=== PATIENT | male | born 1985 | race African-American/Black ===

== ENCOUNTER 2017-06-01 04:39 | Emergency (ER) | payer SELFPAY ==
[2017-06-01 04:44] VITALS: PULSE 52
--- NOTE | 2017-06-01 05:11 | EDPHY ---
H & P Stated Complaint: TOOTHACHE X 1 DAY Time Seen by Provider: 06/01/17 05:04 HPI/ROS: HPI The patient presents with toothache of his left lower molar which has been present for the last 2 weeks though is worse over the last several hours. He had a filling in place in this tooth which fell out a few weeks ago. He has not been able to see a dentist. He has pain in the area which is worse at night. The pain is aching, does not radiate, is not associated with any fever and neck pain.. REVIEW OF SYSTEMS Constitutional: No fever, no chills. Skin: No rashes. Neurological: No headache. PMHx: Healthy Soc Hx: Recently moved to [place] PHYSICAL General Appearance: Alert, no distress Eyes: Pupils equal and round no pallor or injection ENT, Mouth: Left lower molar demonstrates caries, there is tenderness along the gum line with any obvious areas of fluctuance, erythema, there is no trismus Respiratory: Breathing comfortably Neurological: A&O, moves all extremities Skin: Warm and dry, no rashes Musculoskeletal: Neck is supple non tender Extremities: symmetrical, full range of motion Psychiatric: Patient is oriented X 3, there is no agitation Source: Patient Exam Limitations: No limitations - Personal History Current Tetanus/Diphtheria Vaccine: Unsure Current Tetanus Diphtheria and Acellular Pertussis (TDAP): Unsure - Medical/Surgical History Hx Asthma: No Hx Chronic Respiratory Disease: No Hx Diabetes: No Hx Cardiac Disease: No Hx Renal Disease: No Hx Cirrhosis: No Hx Alcoholism: No Hx HIV/AIDS: No Hx Splenectomy or Spleen Trauma: No Other PMH: NO PMH - Social History Smoking Status: Current some day smoker Constitutional: Initial Vital Signs Temperature (C) 36.8 C 06/01/17 04:42 Heart Rate 52 L 06/01/17 04:42 Respiratory Rate 18 06/01/17 04:42 Blood Pressure 121/74 H 06/01/17 04:42 O2 Sat (%) 96 06/01/17 04:42 O2 Delivery Mode Room Air Allergies/Adverse Reactions: No Known Allergies Allergy (Unverified 06/01/17 04:44) Home Medications: Medication Instructions Recorded Penicillin V Potassium [Penicillin 500 mg PO BID #14 tab 06/01/17 VK] Penicillin Vk 250Mg Prepack#6 [Pen 1 btl TAKEHOME BID #6 btl 06/01/17 Vk 250 mg Prepack#6] Medical Decision Making Procedures: Procedure: Regional anesthesia. A dental block of the inferior alveolar was performed for toothache. The block was performed with Marcaine with epinephrine. The patient experienced complete pain relief. The procedure was performed by myself. Differential Diagnosis: This is a 32-year-old male who presents with a toothache, filling fell out of a cavity. He has had intermittent pain worse at night. He on exam has tenderness along the gum line without any obvious abscess. Differential diagnosis includes dental abscess, less likely Breezy's angina, less likely a pharyngitis. In the emergency department, the patient was given a inferior alveolar block by me. I will give him a course of penicillin. I have referred him to [facility]. - Data Points Medications Given: Discontinued Medications Penicillin V Potassium (Pen Vk 250 Mg Prepack#6) 1 btl TAKEHOME EDNOW ONE PRN Reason: Protocol Stop: 06/01/17 05:37 Last Admin: 06/01/17 05:48 Dose: 1 btl Departure - Departure Disposition: Home, Routine, Self-Care Clinical Impression: Toothache Condition: Good Instructions: Toothache (ED) Additional Instructions: [facility] [address] [id number] Please call the above for an appointment in the next few days. You should return to the ER if your worse in any way. Referrals: NONE *PRIMARY CARE P,. [Primary Care Provider] - As per Instructions Prescriptions: Penicillin V Potassium [Penicillin VK] 500 mg PO BID #14 tab Penicillin Vk 250Mg Prepack#6 [Pen Vk 250 mg Prepack#6] 1 btl TAKEHOME BID #6 btl
[2017-06-01] MEDS ORDERED: PENICILLIN VK 250MG PREPACK#6 BTL TAKEHOME ONE (05:36)
[2017-06-01 05:58] VITALS: BP 97/60; RESP 14; TEMP 97.7; O2SAT 97
== END 2017-06-01 05:56 | disposition home or self-care (01) ==
PROC: 3E0X3BZ Introduction of Anesthetic Agent into Cranial Nerves, Percutaneous Approach (ICD-10-PCS; principal; 2017-06-01)
DX: K08.89 Other specified disorders of teeth and supporting structures (principal); F17.200 Nicotine dependence, unspecified, uncomplicated

== ENCOUNTER 2018-07-29 15:15 | Emergency (ER) | payer MEDICAID ==
[2018-07-29 15:22] VITALS: BP 114/68
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
== END 2018-07-29 16:06 | disposition home or self-care (01) ==
DX: S33.5XXA Sprain of ligaments of lumbar spine, initial encounter (principal); F17.200 Nicotine dependence, unspecified, uncomplicated